=== PATIENT | female | born 1985 | race Caucasian/White ===

== ENCOUNTER 2017-09-20 23:09 | Emergency (ER) | payer SELFPAY ==
[2017-09-20 23:16] VITALS: BP 140/100
--- NOTE | 2017-09-20 23:17 | ER Report ---
History and Physical Time Seen By MD: 23:15 HPI/ROS CHIEF COMPLAINT: Painful lump left axilla HISTORY OF PRESENT ILLNESS: 32-year-old female with a sore spot in her left axilla. She thinks it's been there one week. She squeezed it and some drainage came out. She notes no fever, chills. Allergies: Coded Allergies: Penicillins (Verified Allergy, Severe, ANAPHALAXSIS, 09/20/17) cefaclor (Verified Allergy, Severe, ANAPHALXSIS, 09/20/17) divalproex sodium (Verified Allergy, Intermediate, HAIR FALLS OUT, 09/20/17) sulfamethoxazole (Verified Allergy, Intermediate, SEVERE ITCHING, 09/20/17) trimethoprim (Verified Allergy, Intermediate, SEVERE ITCHING, 09/20/17) Home Meds Active Scripts Clindamycin Hcl (CLINDAMYCIN HCL) 300 Mg Capsule, 300 MG PO TID for infection, # 30 CAPSULE TAKE 1 CAPSULE EVERY SIX HOURS Prov:CHILANGO CONLEY DO 09/20/17 Reported Medications Fluticasone/Salmeterol (ADVAIR 250-50 DISKUS) 1 Each Disk.w.dev, 1 EACH IH QDAY 09/20/17 Albuterol Sulfate 90 Mcg/Act (PROAIR HFA 90 MCG/ACT) 8.5 Gm Hfa.aer.ad, 2 PUFF IH Q4-6H Y for SHORTNESS OF BREATH, INHALER 09/20/17 Reviewed Nurses Notes: Yes Old Medical Records Reviewed: Yes Constitutional Vital Sign - Last 24 Hours 09/20/17 23:16 Temp 98.7 Pulse 113 Resp 24 B/P (MAP) 140/100 Pulse Ox 96 O2 Delivery Room Air Physical Exam General appearance: Alert no distress. Respiratory: Chest is non tender, lungs are clear to auscultation. Cardiac: Regular rate and rhythm Extremities: Examination of the left axilla reveals approximately 2 cm area that started to the touch but not fluctuant. It is tender to palpation consistent with cellulitis DIFFERENTIAL DIAGNOSIS: After history and physical exam differential diagnosis was considered for cellulitis, abscess, sebaceous cyst Medical Decision Making ED Course/Re-evaluation ED Course Patient was admitted to an examination room. H&P was done. The differential diagnoses was considered. On clinical examination. Patient has a nodule in her left axilla consistent with cellulitis and infection. She is advised to apply warm compresses to it. Patient be covered with clindamycin 300 mg 3 times a day. She is advised to follow-up with urgent care or primary care in 3- 5 days for possible drainage. Decision to Disposition Date: Sep 20, 2017 Decision to Disposition Time: 23:24 Depart Departure Latest Vital Signs Vital Signs Date Time Temp Pulse Resp B/P (MAP) Pulse Ox O2 Delivery O2 Flow Rate FiO2 09/20/17 23:16 98.7 113 24 140/100 96 Room Air Impression: Primary Impression: Cellulitis of left axilla Condition: Improved Disposition: HOME OR SELF-CARE Referrals: MAURY TELLO MD New Scripts Clindamycin Hcl (CLINDAMYCIN HCL) 300 Mg Capsule 300 MG PO TID for infection, #30 CAPSULE TAKE 1 CAPSULE EVERY SIX HOURS Prov: CHILANGO CONLEY DO 09/20/17 Patient Instructions: Cellulitis (ED) Additional Instructions: Apply warm compresses one hour at a time 3-4 times per day Alternate ibuprofen 600 mg and Tylenol 650 mg every 4 hours for pain control Follow-up with primary care or urgent care if unimproved in 3-5 days CHILANGO CONLEY DO Sep 20, 2017 23:17
[2017-09-20] MEDS ORDERED: ALBU8.5H IH (23:20)
[2017-09-20] MEDS ORDERED: FLUT1DIS28 IH (23:20)
[2017-09-20] MEDS ORDERED: CLIN300C99 PO (23:26)
[2017-09-20] MEDS ORDERED: CLINDAMYCIN 150 MG CAP PO ONE (23:30)
== END 2017-09-20 23:33 | disposition home or self-care (01) ==
LOC: ER 23:13
DX: L03.112 Cellulitis of left axilla (principal)
CPT/HCPCS: 99281